=== PATIENT | female | born 1945 | race Caucasian/White ===

== ENCOUNTER → 2018-02-28 | Outpatient (CLI) | payer OTHER | LOC: FIMAGING 15:12 | PROVIDERS: ATTEND Podiatrist Foot & Ankle Surgery | DX: M19.072 Primary osteoarthritis, left ankle and foot (principal) ==

== ENCOUNTER 2018-05-27 08:02 | Day surgery (SDC) | payer OTHER ==
[2018-05-27] MEDS ORDERED: LR 1,000 ML IV ONE (08:25)
[2018-05-27] MEDS ORDERED: ceFAZolin 1 GM/5 ML SYR ONE (09:36)
[2018-05-27] MEDS ORDERED: LIDOCAINE 2% 100 MG/5 ML SYR ONE (09:36)
[2018-05-27] MEDS ORDERED: BUPIVACAINE 0.5% 30 ML SDV ONE (09:36)
[2018-05-27] MEDS ORDERED: fentaNYL 100 MCG/2 ML INJ ONE ×2 (09:37→13:03)
--- NOTE | 2018-05-27 09:39 | PDHPUP ---
History & Physical Update H&P update statement: This history and physical update is based on an assessment of the patient which was completed after admission or registration (within 24 hours), but prior to the surgery/procedure. H&P update: H&P reviewed & patient examined
[2018-05-27] MEDS ORDERED: CEFAZOLIN 2 GM/DEXTROSE/100 ML BAG IV ONE (09:56)
[2018-05-27] MEDS ORDERED: PROPOFOL 200 MG/20 ML VIAL ONE ×3 (09:59→10:39)
[2018-05-27] MEDS ORDERED: ROPIVACAINE HCL 150 MG/30 ML INJ ONE (10:02)
[2018-05-27] MEDS ORDERED: LIDOCAINE 2% 2 ML INJ ONE (10:02)
--- NOTE | 2018-05-27 10:04 | PDANEPAE ---
ANE Past Medical History - Cardiovascular History Hx Hypertension: Yes Hx Arrhythmias: No Hx Chest Pain: No Hx Coronary Artery / Peripheral Vascular Disease: No Hx CHF / Valvular Disease: No Hx Palpitations: No - Pulmonary History Hx COPD: No Hx Asthma/Reactive Airway Disease: No Hx Recent Upper Respiratory Infection: No Hx Oxygen in Use at Home: No Hx Sleep Apnea: No Sleep Apnea Screening Result - Last Documented: Negative - Neurologic History Hx Cerebrovascular Accident: No Hx Seizures: No Hx Dementia: No - Endocrine History Hx Diabetes: No Endocrine History Comment: hypothyroid - Renal History Hx Renal Disorders: No - Liver History Hx Hepatic Disorders: No - Neurological & Psychiatric Hx Hx Neurological and Psychiatric Disorders: Yes Neurological / Psychiatric History Comment: anxiety - Cancer History Hx Cancer: No - Congenital Disorder History Hx Congenital Disorders: No - GI History Hx Gastrointestinal Disorders: Yes Gastrointestinal History Comment: occasional reflux. ulcers when younger - Other Health History Other Health History: hiatal hernia. bruise easily. wears glasses. osteoarthritis - Chronic Pain History Chronic Pain: Yes (left foot) - Surgical History Prior Surgeries: hysterectomy. tonsillectomy. endometriosis surgery ANE Review of Systems Review of Systems: - Exercise capacity METS (RN): 4 METS ANE Patient History - Allergies Allergies/Adverse Reactions: No Known Allergies Allergy (Verified 05/21/18 14:22) - Home Medications Home Medications: Hydrochlorothiazide 12/04/09 [Last Taken 05/27/18] Levothyroxine Sodium 12/04/09 [Last Taken 05/27/18] RANITIDINE HCL PRN 12/04/09 [Last Taken 05/27/18] Zoloft 12/04/09 [Last Taken 05/27/18] Amlodipine Besylate 05/21/18 [Last Taken 05/27/18] Citrucel 05/21/18 [Last Taken 05/27/18] Vitamin D3 05/21/18 [Last Taken 05/27/18] - NPO status NPO Since - Liquids (Date): 05/27/18 NPO Since - Liquids (Time): 07:00 NPO Since - Solids (Date): 05/26/18 NPO Since - Solids (Time): 22:00 - Smoking Hx Smoking Status: Never smoked - Family Anes Hx Family Hx Anesthesia Complications: none ANE Labs/Vital Signs - Vital Signs Blood Pressure: 170/101 Heart Rate: 60 Respiratory Rate: 16 O2 Sat (%): 99 Height: 172.72 cm Weight: 61.235 kg ANE Physical Exam - Airway Neck exam: FROM Mallampati Score: Class 1 Mouth exam: normal dental/mouth exam - Pulmonary Pulmonary: no respiratory distress, no rales or rhonchi, clear to auscultation - Cardiovascular Cardiovascular: regular rate and rhythym, no murmur, rub, or gallop - ASA Status ASA Status: II ANE Anesthesia Plan Anesthesia Plan: GA w LMA [facility] Anesthesia: single shot NB, popliteal SNB
[2018-05-27] MEDS ORDERED: ceFAZolin 2 GM/DEXTROSE 100 ML IV ONE (10:15)
[2018-05-27] MEDS ORDERED: DEXAMETHASONE 4 MG/ML VIAL ONE (11:08)
[2018-05-27] MEDS ORDERED: DEXAMETHASONE 10 MG/ML VIAL ONE (11:08)
[2018-05-27] MEDS ORDERED: NALOXONE HCL 0.4 MG/ML INJ IVP PRN (11:42)
[2018-05-27] MEDS ORDERED: oxyCODONE IR 5 MG TAB PO PRN (11:42)
[2018-05-27] MEDS ORDERED: HYDROCODONE/APAP 5/325 TAB PO PRN (11:42)
[2018-05-27] MEDS ORDERED: ACETAMINOPHEN 500 MG TAB PO PRN (11:42)
[2018-05-27] MEDS ORDERED: ALBUTEROL 3 ML DEYVIAL IH PRN (11:42)
[2018-05-27] MEDS ORDERED: fentaNYL 100 MCG/2 ML INJ IVP PRN (11:42)
[2018-05-27] MEDS ORDERED: ONDANSETRON 4 MG/2 ML VIAL IVP PRN ×2 (11:42→12:48)
[2018-05-27] MEDS ORDERED: DEXAMETHASONE 4 MG/ML VIAL IVP PRN (11:42)
[2018-05-27] MEDS ORDERED: LR 500 ML IV PRN (11:42)
[2018-05-27] MEDS ORDERED: ONDANSETRON 4 MG/2 ML VIAL ONE (12:27)
[2018-05-27] MEDS ORDERED: ONDANSETRON DISINTEGRATING 4 MG TAB PO PRN (12:48)
[2018-05-27] MEDS ORDERED: OXYCODONE/APAP 5/325 TAB PO PRN (12:48)
[2018-05-27] MEDS ORDERED: HYDROCODONE/APAP 5/325 TAB ONE (13:12)
--- NOTE | 2018-05-27 13:32 | POSTANESTH ---
Post Anesthetic Evaluation Cardiovascular Status: Normal, Stable, Similar to Pre-Op Cond Respiratory Status: Normal, Stable, Similar to Pre-op Cond. Level of Consciousness/Mental Status: Can Participate in Eval Pain Control: Adequate, Prn Tx Ordered Nausea/Vomiting Control: Adequate, Prn Tx Ordered Complications Possibly Related to Anesthesia: None Noted
[2018-05-27 14:29] VITALS: BP 143/78
--- NOTE | 2018-05-28 11:14 | GOP ---
DATE OF OPERATION: 05/27/2018 SURGEON: Bong Pickett DPM DEBEADER: None. ANESTHESIA: IV general. PREOPERATIVE DIAGNOSIS: 1. Gastrocnemius equinus, left lower extremity. 2. Talipes calcaneal valgus, left foot. 3. Second intermetatarsal space neuroma, left foot. 4. 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 POSTOPERATIVE DIAGNOSIS: 1. Gastrocnemius equinus, left lower extremity. 2. Talipes calcaneal valgus, left foot. 3. Second intermetatarsal space neuroma, left foot. 4. 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 PROCEDURE PERFORMED: 1. Gastrocnemius recession, left. 2. An Tyler calcaneal osteotomy, left foot. 3. An excision of the neuroma from the 2nd intermetatarsal space, left foot. 4. An arthrodesis of the 2nd and 3rd tarsometatarsal joints, left foot. FINDINGS: ESTIMATED BLOOD LOSS: Scant. 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 The patient has had multiple [facility] as well as used orthotics for many years. The patient was presented with procedures to nain ect her flatfoot deformity as well as the mid tarsal joint osteoarthritis and wishes to proceed. The patient understands the risks, benefits, and alternatives to the procedures presented and does wish to proceed. DESCRIPTION OF PROCEDURE: Procedures in detail are as follows: Under mild sedation and following th e popliteal block in the preoperative area, the patient was placed on the operating table in the supi ne position. Following induction of general anesthesia, as well as infiltration of 2 g of IV Ancef, a femoral nerve block was placed with 10 cc of 0.5% Marcaine plain. The foot, ankle, and lower extre mity were then scrubbed, prepped, and draped in the usual aseptic manner. It should be noted that a nonsterile pneumatic thigh tourniquet was placed about the patient's well-padded left thigh prior to prep. An Esmarch bandage was utilized to exsanguinate the patient's left lower extremity. The tourn iquet was inflated to 250 mmHg. Attention was then directed to the medial aspect of the patient's left mid calf. A roughly 4 cm line ar longitudinal incision was made overlying the junction of the medial head of the gastrocnemius and soleus muscles. Incision was deepened via sharp and blunt dissection, care being taken to identify a nd retract all vital neural and vascular structures. All bleeders were ligated and cauterized as nec essary. The crural fascia was identified and transected in line with the skin incision. The septa b etween the soleus and gastrocnemius muscles was identified and dissected bluntly, dissected, and sepa rated. The anterior aspect of the gastrocnemius aponeurosis was identified. This was transversely t ransected with a combination of a 15 blade as well as a large Hernandez scissors. The left ankle was dors iflexed and roughly 3 cm of recession was accomplished. The wound was flushed with copious amounts o f sterile normal saline. The crural fascia was closed with a 2-0 Vicryl. Subcutaneous tissues were closed with 3-0 Monocryl and the skin was closed with a running baseball-type suture of 4-0 Prolene. Attention was then directed to the lateral aspect of the patient's left heel where an oblique incisio n was made overlying the anterior portion of the left calcaneus. This incision was directed from the anterior process dorsal distally to plantar laterally. The incision was deepened via sharp and blun t dissection, care being taken to identify and retract all vital neurovascular structures. All bleed ers were ligated and cauterized as necessary. The sural nerve was identified in line with the perone al tendons. This nerve was retracted dorsally and the peroneal tendons were retracted plantarly. Us ing intraoperative fluoroscopy, a linear osteotomy in the transverse plane was met. This osteotomy w as roughly 1.5 cm proximal to the calcaneocuboid joint and the sagittal saw was directed from lateral to medial. Again, this was checked under intraoperative fluoroscopy and noted to be excellent. The sagittal saw as well as an osteotome was used to create this osteotomy. It was sized out for the ap propriate wedge with the trial sizes. This was again checked under intraoperative fluoroscopy and "d ialed in." We settled with an 8 mm graft. This was assessed with the lengthening of the lateral col umn as well as the covering of the talar head and a rectus position of the heel bone. Again, these w ere checked under intraoperative fluoroscopy. The trial was removed and the wedge was placed. It wa s tamped in an appropriate position. All rough edges were removed with a rongeur. Next, an inverted L-type plate was placed on the lateral aspect of the patient's calcaneus bridging t he graft. Three locking screws were used to hold this in place. Fixation was noted to be excellent upon validation of the screws. Again, intraoperative fluoroscopy was checked for placement of this p late and screw construct. The wound was flushed with copious amounts of sterile normal saline and closed in layers with 2-0 Blake ryl closing the periosteal capsular layer as well as the tendon sheath. 3-0 Monocryl closing the sub cutaneous layer and the skin was closed with a running baseball-type suture of 4-0 Prolene. Attention was then directed to the area overlying the distal 2nd intermetatarsal space where a 2.5 cm linear longitudinal incision was made in line with the longitudinal axes of the 2nd and 3rd metatars als. The incision was deepened via sharp and blunt dissection, care being taken to identify and retr act all vital neurovascular structures. All bleeders were ligated and cauterized as necessary. The transverse intermetatarsal ligament was transected sharply with scissors, and the common plantar nerv e was identified and freed from its soft tissue attachments. 1 cc/4 mg of dexamethasone was infiltra christa into both the distal branches and the proximal branch. The distal branches were sharply transect ed with a 15 blade and then the root of the nerve was followed as far back as visible and cut with th e same 15 blade. The wound was flushed with copious amounts of sterile normal saline. Subcutaneous tissue was closed with 3-0 Monocryl. The skin was closed with a 4-0 Prolene. Attention was then directed to the area overlying the bases of the 2nd and 3rd metatarsals where roug hly 8 cm linear longitudinal incision was made in line with the intercuneiform joint between the inte rmediate and lateral cuneiforms. This incision was deepened via sharp and blunt dissection, care jesus ng taken to identify and retract all vital neurovascular structures. All bleeders were ligated and c auterized as necessary. The neurovascular bundle including the dorsalis pedis artery was mapped out in preop prior to use of the tourniquet. The incision was roughly 1 to 1..5 cm lateral to this. It should also be noted that the extensor tendons were reflected medially and laterally thus exposing th e bases of the 2nd and 3rd metatarsals. A periosteal and capsular incision was made in line with the skin incision and these were freed from their osseous attachments with a combination of sharp dissec tion as well as a Lai elevator. At this time, using an osteotome, the majority of the osteophytes co vering these 2nd and 3rd tarsometatarsal joints were resected and passed from the operative field. N ext, 2 large Steinmann pins and a Hintermann-type retractor were used to retract and visualize the ex tremely arthritic 2nd and 3rd tarsometatarsal joints. It should be noted there was no cartilage emily ining and only subchondral bone; nonetheless, resection of any soft tissue on the subchondral bone wa s resected with a combination of osteotomes, curettage, and bone picks. The subchondral bone once de nuded was further broken up by fish scaling as well as with the use of a 2.5 mm drill bit to bring bl eeding base to the surface as well as to increase surface area. Following preparation of the fusion site, the retractors were removed and passed from the operative field. An H type plate was then util ized on the dorsal aspect of these joints to provide compression across the joint surfaces. These we re then locked in place with locking screws. All this was checked under intraoperative fluoroscopy. Compression was noted to be excellent across the 2nd and 3rd tarsometatarsal joints. The wound was flushed with copious amounts of sterile normal saline. The deep tissues were closed over the hardwar e with 2-0 Vicryl. Subcutaneous tissues were again closed with 3-0 Monocryl, and the skin was closed with a running baseball-type suture of 4-0 Prolene. The wounds were dressed with Xeroform and a demar rile compressive dressing consisting of 4 x 4's and Olivia. The tourniquet was dropped and a prompt h yperemic response was noted to all digits of the left foot. The posterior splint was applied to the patient's left lower extremity to hold the patient's ankle at 90 degrees as well as to accommodate fo r any postoperative edema. The patient tolerated the procedure and anesthesia well. She was transferred to the recovery room wi th vital signs stable and vascular status intact to all digits of the left foot. Following pre and p ostoperative monitoring, the patient will be discharged home with the following written and oral post operative instructions. 1. Keep dressing clean, dry, and intact. 2. Ice and elevate as instructed. 3. Use caution while taking pain medication. 4. Nonweightbearing at all times with knee scooter and/or wheelchair. 5. All questions and concerns should be directed toward [facility] Orthopedic Department at [phone]. PATHOLOGY: None. HEMOSTASIS: Pneumatic thigh tourniquet at 250 mmHg for 123 minutes. MATERIALS: A combination of 2 plates and 9 screws all from [place] 28 for the Tyler calcaneal osteot iva, as well as the arthrodesis of the 2nd and 3rd tarsometatarsal joints. It should be noted that a wedge of structural bone graft was also placed within the anterior process of the left calcaneus. INJECTABLES: The patient received a popliteal nerve block via anesthesia. I supplemented the block with a femoral nerve block immediately medial to the tibial tuberosity of the left lower extremity wi th 10 cc of 0.5% Marcaine plain. I also augmented the block around the incisions with an additional 10 cc of 0.5% Marcaine plain at the end of the procedure. COMPLICATIONS: None. /[id number]/MODL
== END 2018-05-27 14:18 | disposition home or self-care (01) ==
LOC: FSGY 08:02
PROVIDERS: ATTEND Podiatrist Foot & Ankle Surgery
PROC: 0SGL04Z Fusion of Left Tarsometatarsal Joint with Internal Fixation Device, Open Approach (ICD-10-PCS; principal; 2018-05-27 10:00)
PROC: 01BG0ZZ Excision of Tibial Nerve, Open Approach (ICD-10-PCS; principal; 2018-05-27 10:00)
PROC: 0LSP0ZZ Reposition Left Lower Leg Tendon, Open Approach (ICD-10-PCS; principal; 2018-05-27 10:00)
PROC: 0Q8M0ZZ Division of Left Tarsal, Open Approach (ICD-10-PCS; principal; 2018-05-27 10:00)
DX: Q66.4 Congenital talipes calcaneovalgus (principal); M19.90 Unspecified osteoarthritis, unspecified site; I10 Essential (primary) hypertension
CPT/HCPCS: C1713; C1762; J0690; J1100; J2001; J2405; J2704; J2795; J3010

== ENCOUNTER → 2018-06-10 | Outpatient (CLI) | payer OTHER | LOC: BMCIMAGING 13:16 | PROVIDERS: ATTEND Podiatrist Foot & Ankle Surgery | DX: Z09 Encounter for follow-up examination after completed treatment for conditions other than malignant neoplasm (principal) ==

== ENCOUNTER → 2018-07-10 | Outpatient (CLI) | payer OTHER | LOC: BMCIMAGING 11:14 | PROVIDERS: ATTEND Podiatrist Foot & Ankle Surgery | DX: Z98.1 Arthrodesis status (principal) ==

== ENCOUNTER → 2018-07-31 | Outpatient (CLI) | payer OTHER | LOC: BMCIMAGING 10:19 | PROVIDERS: ATTEND Podiatrist Foot & Ankle Surgery | DX: Z09 Encounter for follow-up examination after completed treatment for conditions other than malignant neoplasm (principal); Z98.890 Other specified postprocedural states ==

== ENCOUNTER → 2018-08-23 | Outpatient (CLI) | payer OTHER | LOC: BMCIMAGING 10:35 | PROVIDERS: ATTEND Podiatrist Foot & Ankle Surgery | DX: Z09 Encounter for follow-up examination after completed treatment for conditions other than malignant neoplasm (principal); Z98.890 Other specified postprocedural states; Z98.1 Arthrodesis status ==